=== PATIENT | female | born 1940 | race Caucasian/White ===

== ENCOUNTER 2022-04-17 20:34 | Emergency (ER) | payer MEDICARE, BC ==
[2022-04-17] MEDS ORDERED: Erythromycin Base 0.5% Ophth Oint 3.5 GM Tube ONE (20:35)
== END 2022-04-17 22:05 | disposition home or self-care (01) ==
LOC: FB.ED 20:34
DX: S05.01XA Injury of conjunctiva and corneal abrasion without foreign body, right eye, initial encounter (principal); W22.09XA Striking against other stationary object, initial encounter
CPT/HCPCS: 99283; A9270-GY